=== PATIENT | male | born 1935 | race Caucasian/White ===

== ENCOUNTER 2016-12-04 15:06 | Emergency (ER) | payer OTHER ==
[~2016-12-04] VITALS: Ht 170.2 cm; Wt 70.0 kg
[2016-12-04 15:17] VITALS: BP 155/76; PULSE 95; RESP 16; TEMP 98.7; O2SAT 96
--- NOTE | 2016-12-04 15:25 | PD ---
HPI Chief Complaint: Medical Clearance Time Seen by Provider: 15:25 Travel History International Travel<30 days: No Contact w/Intl Traveler<30days: No Traveled to known affect area: No History of Present Illness HPI 81-year-old male presents to the emergency Department under [place] act by local police. According the [place] act, the patient was at a [employer] bus station. He told the officer he was in [place] and did not want to go with the officer. Therefore, the patient was placed under [place] act. However, the patient states that he just was released from [facility] on Monday and took 3 [employer] buses to come to [facility]. He was to meet his legal compliance officer at the [employer] station and that is why he was there. He states that he is in [facility]. He states the year is 2016. He states his date of and that his ex- lives in [place]. The patient does not know the president, but states he does not keep up with that as he was just in [facility]. The patient reports history of hypertension. He denies any medical complaints at this time. The patient denies any suicidal or homicidal ideations. He denies any alcohol or illicit drug use. He states he does smoke tobacco. [facility] Social History Alcohol Use: No Tobacco Use: Yes Substance Use: No Allergies-Medications (Allergen,Severity, Reaction): Coded Allergies: No Known Allergies (Unverified , 12/04/16) Reported Meds & Prescriptions Reported Meds & Active Scripts Active Reported Alvesco Inh (Ciclesonide Inh) 80 Mcg/Act Aero 1 Puff INH BID Xopenex Hfa 15 GM Inh (Levalbuterol 15 GM Inh) 45 Mcg/Act Aer 2 Puff INH Q4HR PRN Shake well before using. (1 puff = 45 mcg) Clopidogrel (Clopidogrel Bisulfate) 75 Mg Tab 75 Mg PO DAILY Atenolol 25 Mg Tab 25 Mg PO DAILY Montelukast (Montelukast Sodium) 10 Mg Tab 10 Mg PO HS Lisinopril 5 Mg Tab 5 Mg PO DAILY Review of Systems Except as stated in HPI: all other systems reviewed are Neg Physical Exam Narrative GENERAL: Well-nourished, well-developed elderly male patient, ambulatory with a steady gait. Afebrile. Patient is alert and oriented to person, place, time. SKIN: Focused skin assessment warm/dry. HEAD: Normocephalic. Atraumatic. EYES: No scleral icterus. No injection or drainage. NECK: Supple, trachea midline. No JVD or lymphadenopathy. CARDIOVASCULAR: Regular rate and rhythm without murmurs, gallops, or rubs. RESPIRATORY: Breath sounds equal bilaterally. No accessory muscle use. Lungs sounds are clear to auscultation. GASTROINTESTINAL: Abdomen soft, non-tender, nondistended. MUSCULOSKELETAL: No cyanosis, or edema. PSYCHIATRIC: No delusional thought processes. No hallucinations. Data Data Last Documented VS Vital Signs Date Time Temp Pulse Resp B/P Pulse Ox O2 Delivery O2 Flow Rate FiO2 12/04/16 15:50 88 14 12/04/16 15:50 97.9 140/92 93 Room Air Orders Diet Heart Healthy (12/04/16 Lunch) Complete Blood Count With Diff (12/04/16 15:35) Comprehensive Metabolic Panel (12/04/16 15:35) Psych Screen (12/04/16 15:35) Drug Screen, Random Urine (12/04/16 15:35) Alcohol (Ethanol) (12/04/16 15:35) Labs Laboratory Tests Test 12/04/16 12/04/16 16:10 16:20 White Blood Count 12.2 TH/MM3 Red Blood Count 4.39 MIL/MM3 Hemoglobin 14.3 GM/DL Hematocrit 43.8 % Mean Corpuscular Volume 99.9 FL Mean Corpuscular Hemoglobin 32.7 PG Mean Corpuscular Hemoglobin 32.7 % Concent Red Cell Distribution Width 13.7 % Platelet Count 160 TH/MM3 Mean Platelet Volume 9.0 FL Neutrophils (%) (Auto) 80.6 % Lymphocytes (%) (Auto) 10.3 % Monocytes (%) (Auto) 8.1 % Eosinophils (%) (Auto) 0.6 % Basophils (%) (Auto) 0.4 % Neutrophils # (Auto) 9.8 TH/MM3 Lymphocytes # (Auto) 1.2 TH/MM3 Monocytes # (Auto) 1.0 TH/MM3 Eosinophils # (Auto) 0.1 TH/MM3 Basophils # (Auto) 0.1 TH/MM3 CBC Comment DIFF FINAL Differential Comment Sodium Level 136 MEQ/L Potassium Level 4.5 MEQ/L Chloride Level 102 MEQ/L Carbon Dioxide Level 26.0 MEQ/L Anion Gap 8 MEQ/L Blood Urea Nitrogen 20 MG/DL Creatinine 1.36 MG/DL Estimat Glomerular Filtration 51 ML/MIN Rate Random Glucose 139 MG/DL Calcium Level 8.4 MG/DL Total Bilirubin 0.3 MG/DL Aspartate Amino Transf 18 U/L (AST/SGOT) Alanine Aminotransferase 16 U/L (ALT/SGPT) Alkaline Phosphatase 113 U/L Total Protein 7.4 GM/DL Albumin 3.7 GM/DL Ethyl Alcohol Level LESS THAN 3 MG/DL Urine Opiates Screen NEG Urine Barbiturates Screen NEG Urine Amphetamines Screen NEG Urine Benzodiazepines Screen NEG Urine Cocaine Screen NEG Urine Cannabinoids Screen NEG MDM Medical Decision Making Medical Screen Exam Complete: Yes Emergency Medical Condition: Yes Medical Record Reviewed: Yes Differential Diagnosis Medical clearance versus electrolyte abnormality versus dehydration Narrative Course 81-year-old male presents to the emergency Department under [place] act by local police. The patient denies any suicidal or homicidal ideations. The patient answers all questions appropriately and is aware of what is going on. CBC, CMP , alcohol level, urine drug screen are ordered and pending. Patient has paperwork with him that states he was to go to the [facility], [address] [facility] [employer] [facility]; [place] [address]; probation office is in [place], phone # [phone]. It verifies that he was just released from [facility]. CBC shows leukocytosis 12.2. CMP shows BUN 20, creatinine 1.36. Alcohol level is less than 3. UDS is negative. Patient is medically cleared for psychiatric screening and disposition. Mental health screening discussed with the patient. Psychiatric screen ordered. Diagnosis Primary Impression: Medical clearance for psychiatric admission Additional Instructions: Patient is medically cleared for psychiatric screening and disposition. Condition: Stable Marielle Poole Dec 04, 2016 15:25
[2016-12-04 15:50] VITALS: BP 140/92; PULSE 90; RESP 14; TEMP 97.9; O2SAT 93
[2016-12-04 16:39] LABS: AUTOMATED NEUTROPHIL # 9.8 TH/MM3 (1.8-7.7); BASOPHIL # 0.1 TH/MM3 (0-0.2); BASOPHIL % 0.4 % (0.0-2.0); EOSINOPHIL # 0.1 TH/MM3 (0-0.4); EOSINOPHIL % 0.6 % (0.0-4.0); HEMATOCRIT 43.8 % (39.0-51.0); HEMO FLAGS DIFF FINAL; LYMPH % 10.3 % (9.0-44.0); LYMPHOCYTE # 1.2 TH/MM3 (1.0-4.8); MEAN CELL VOLUME 99.9 FL (80.0-100.0); MEAN CORPUSCULAR HEMOGLOBIN 32.7 PG (27.0-34.0); MEAN CORPUSCULAR HGB CONC 32.7 % (32.0-36.0); MONO % 8.1 % (0.0-8.0); NEUT % 80.6 % (16.0-70.0); PLATELET COUNT 160 TH/MM3 (150-450); RED BLOOD COUNT 4.39 MIL/MM3 (4.50-5.90); RED CELL DISTRIBUTION WIDTH 13.7 % (11.6-17.2); WHITE BLOOD COUNT 12.2 TH/MM3 (4.0-11.0)
[2016-12-04] MEDS ORDERED: XOPEAER4 INH (16:53)
[2016-12-04] MEDS ORDERED: CLOP75TA PO (16:53)
[2016-12-04] MEDS ORDERED: [UNRECOGNIZED DRUG - CODE] INH (16:53)
[2016-12-04] MEDS ORDERED: ATEN25TA PO (16:53)
[2016-12-04] MEDS ORDERED: LISI-519 PO (16:53)
[2016-12-04] MEDS ORDERED: MONT10TA4 PO (16:53)
[2016-12-04] MEDS ORDERED: ALVE80AE2 INH (16:57)
[2016-12-04 17:00] LABS: AMPHETAMINE, URINE NEG (NEG); BARBITURATES, URINE NEG (NEG); COCAINE, URINE NEG (NEG)
[2016-12-04 17:14] LABS: ALKALINE PHOSPHATASE 113 U/L (45-117); ALT (GPT) 16 U/L (12-78); ANION GAP 8 MEQ/L (5-15); AST (GOT) 18 U/L (15-37); BLOOD UREA NITROGEN 20 MG/DL (7-18); CHLORIDE 102 MEQ/L (98-107); GLOMERULAR FILTRATION RATE 51 ML/MIN (>89); POTASSIUM 4.5 MEQ/L (3.5-5.1); SODIUM (NA) 136 MEQ/L (136-145); TOTAL BILIRUBIN ADULT 0.3 MG/DL (0.2-1.0)
[2016-12-04 21:13] VITALS: BP 107/63; PULSE 85; RESP 18; TEMP 98.2; O2SAT 97
[2016-12-04 22:29] VITALS: BP 123/65; PULSE 80; RESP 18; O2SAT 98
[2016-12-05 02:08] VITALS: BP 127/70; PULSE 73; RESP 18
[2016-12-05 06:11] VITALS: BP 116/74; PULSE 71; RESP 18
[2016-12-05 10:46] VITALS: BP 129/70; PULSE 82; RESP 18; O2SAT 98
--- NOTE | 2016-12-05 12:49 | PD.CONS ---
Provisional Diagnosis Admission Date [place] I. Adjustment disorder with disturbance of conduct [place] II. Deferred [place] III. No medical history [place] IV. Recently released from 3 years incarceration [place] V. 55 History of Present Illness Service Psychiatry Consult Requested By Primary Care Physician No Primary Care Physician HPI The patient is a 81-year-old man, recently released from [facility]way after 3 years incarceration, under parole, homeless, single, no family support, no previous psychiatric history, no previous suicidal attempts, no previous psychiatric hospitalizations, no significant medical history, who presents to the emergency Department under [place] act by local police. According the [email or web address] act, the patient was at a [employer] bus station. He told the officer he was in [place] and did not want to go with the officer. Therefore, the patient was placed under [place] act. However, the patient states that he just was released from [facility] on Monday and took 3 [employer] buses to come to [facility]. He was to meet his navigation officer at the [employer] station and that is why he was there. He states that he is in [facility]. On psychiatric evaluation patient is oriented 3, he doesn't know who is the lap cutter truer operator, he says that he has not been watching news at least for the last 10 years, he doesn't watch television. Patient reports good mood, he says that he is committed and motivated to start a new life. He doesn't complain of pain , denies depressive symptoms, denies anxiety, denies vernon, no psychosis. Patient denies suicidal or homicidal ideation, he denies visual and auditory hallucinations. Patient is logical, coherent and relevant. No delirium, no paranoia, no delusions, no agitation, no aggressive behavior observed or reported. Patient denies the use of illicit drugs and alcohol.. Review of Systems Constitutional: DENIES: Diaphoretic episodes, Fatigue, Fever, Weight gain, Weight loss, Chills, Dizziness, Change in appetite, Night Sweats Endocrine: DENIES: Heat/cold intolerance, Polydipsia, Polyuria, Polyphagia Eyes: DENIES: Blurred vision, Diplopia, Eye inflammation, Eye pain, Vision loss , Photosensitivity, Double Vision Ears, nose, mouth, throat: DENIES: Tinnitus, Hearing loss, Vertigo, Nasal discharge, Oral lesions, Throat pain, Hoarseness, Ear Pain, Running Nose, Epistaxis, Sinus Pain, Toothache, Odynophagia Respiratory: DENIES: Apneas, Cough, Snoring, Wheezing, Hemoptysis, Sputum production, Shortness of breath Cardiovascular: DENIES: Chest pain, Palpitations, Syncope, Dyspnea on Exertion , PND, Lower Extremity Edema, Orthopnea, Claudication Gastrointestinal: DENIES: Abdominal pain, Black stools, Bloody stools, Constipation, Diarrhea, Nausea, Vomiting, Difficulty Swallowing, Anorexia Genitourinary: DENIES: Sexual dysfunction, Urinary frequency, Urinary incontinence, Urgency, Hematuria, Dysuria, Nocturia, Penile Discharge, Testicular Pain, Testicular Swelling Musculoskeletal: DENIES: Joint pain, Muscle aches, Stiffness, Joint Swelling, Back pain, Neck pain Integumentary: DENIES: Abnormal pigmentation, Nail changes, Pruritus, Rash Hematologic/lymphatic: DENIES: Bruising, Lymphadenopathy Immunologic/allergic: DENIES: Eczema, Urticaria Neurologic: DENIES: Abnormal gait, Headache, Localized weakness, Paresthesias, Seizures, Speech Problems, Tremor, Poor Balance Psychiatric: DENIES: Anxiety, Confusion, Mood changes, Depression, Hallucinations, Agitation, Suicidal Ideation, Homicidal Ideation, Delusions Past Family Social History Coded Allergies: No Known Allergies (Unverified , 12/04/16) Reported Medications Ciclesonide Inh (Alvesco Inh)80 Mcg/Act Aero1 Puff INH BID #1 INHALER Ref 0 12/04/16 Levalbuterol 15 GM Inh (Xopenex Hfa 15 GM Inh)45 Mcg/Act Aer2 Puff INH Q4HR PRN (SHORTNESS OF BREATH) #1 INHALER Ref 0 Shake well before using. (1 puff = 45 mcg) 12/04/16 Clopidogrel 75 Mg Tab75 Mg PO DAILY #30 TAB Ref 0 12/04/16 Atenolol 25 Mg Tab25 Mg PO DAILY #30 TAB 12/04/16 Montelukast 10 Mg Tab10 Mg PO HS #30 TAB Ref 0 12/04/16 Lisinopril 5 Mg Tab5 Mg PO DAILY #30 TAB Ref 0 12/04/16 Discontinued Reported Medications Ciclesonide Inh (Alvesco Inh)160 Mcg/Act Aero1 Puff INH BID #1 INHALER Ref 0 12/04/16 Family History Patient denies psychiatric family history Social History Patient was born and raised in [place], is now homeless, under parole, would be assigned at long-term by space officer, her highest level of education is seventh grade Patient's Strengths (min. 2) Verbal communication Physical Exam On physical exam no agitation, no EPS, no tremors, no psychomotor retardation, no gait disturbances Vital Signs Vital Signs Date Time Temp Pulse Resp B/P Pulse Ox O2 Delivery O2 Flow Rate FiO2 12/05/16 10:46 82 18 129/70 98 Room Air 12/04/16 21:13 98.2 I/O 12/04/16 12/04/16 12/05/16 08:00 16:00 00:00 Intake Total 480 ml Output Total 400 ml Balance 80 ml Lab Results Toxicology is negative, BAL was negative Mental Status Examination Appearance man, [facility], good hygiene, calm and cooperative Speech: Unremarkable Orientation: x3 Memory: Unremarkable Thought Process: Logical Thought Content: Unremarkable Hallucination Type: None Suicidal Ideation: No Previous Suicide Attempts: No Homicidal Ideation: No Previous Homicide Attempts: No Insight: Good Affect: Good Mood: Appropriate Motor Activity: Normal gait Assessment & Plan Problem List: (1) Adjustment disorder with disturbance of conduct Assessment & Plan: On psychiatric evaluation today the patient does not present any significant, acute or concerning subjective or objective symptomatology of depression, anxiety, vernon or psychosis. Patient denies suicidal and homicidal ideation, he denies visual and auditory hallucinations. She is fully oriented 3, no delirium, no paranoia, no delusions are present during this evaluation. Patient does not meet criteria for psychiatric admission at this moment. Patient will be discharged back to partial officer custody. [place] act will be lifted. ICD Code: F43.24 Assessment & Plan Estimated LOS: Anmol Chappell MD December 05, 2016 12:49
== END 2016-12-05 12:12 | disposition home or self-care (01) ==
LOC: NEPC 15:06 → NEPJ 12-05 12:12
DX: F43.24 Adjustment disorder with disturbance of conduct (principal); I10 Essential (primary) hypertension; Z59.0 Homelessness; Z72.0 Tobacco use; Z79.899 Other long term (current) drug therapy
CPT/HCPCS: 80053; 80307; 85025; 99283